=== PATIENT | male | born 1940 | race Caucasian/White ===

== ENCOUNTER 2021-12-09 13:26 | Inpatient (IN) | payer OTHER ==
[~2021-12-09] VITALS: Ht 162.6 cm; Wt 132.5 kg
[~2021-12-09 13:26] MED LIST changes: -ASPI81CH PO; -BRIMONIDINE TART5 M2 OP
[2021-12-09 14:15] LABS: BASOPHILS ABSOLUTE AUTO 0.05 K/mm3 (0.00-0.23); BASOPHILS PERCENT AUTO 1 % (0-2); EOSINOPHILS ABSOLUTE AUTO 0.18 K/mm3 (0.00-0.68); EOSINOPHILS PERCENT AUTO 3 % (0-6); Hematocrit 44.6 % (37.0-53.0); Hemoglobin 14.9 g/dL (13.5-17.5); IMMATURE GRAN ABSOLUTE AUTO 0.04 K/mm3 (0.00-0.10); IMMATURE GRAN PERCENT AUTO 1 % (0-1); LYMPHOCYTES ABSOLUTE AUTO 1.55 K/mm3 (0.84-5.20); LYMPHOCYTES PERCENT AUTO 21 % (21-46); MONOCYTES ABSOLUTE AUTO 0.91 K/mm3 (0.16-1.47); MONOCYTES PERCENT AUTO 13 % (4-13); Mean Corpuscular HGB 31.7 pg (26.0-34.0); Mean Corpuscular HGB Conc 33.4 g/dL (31.5-36.5); Mean Corpuscular Volume 95 fL (80-100); Mean Platelet Volume 11.6 fL (9.1-12.4); NEUTROPHILS ABSOLUTE AUTO 4.55 K/mm3 (1.96-9.15); NEUTROPHILS PERCENT AUTO 63 % (41-73); Platelet Count 142 K/mm3 (150-400); RDW Coefficient Variation 13.8 % (11.7-14.2); RDW Standard Deviation 47.2 fL (35.1-46.3); White Blood Cell Count 7.28 K/mm3 (4.00-11.30)
[2021-12-09 14:34] LABS: Bun/Creatinine Ratio 18.9 (12.0-20.0); Creatinine, Blood 1.22 mg/dL (0.60-1.20); Magnesium, Blood 2.4 mg/dL (1.6-2.4); Potassium, Blood 3.7 mmol/L (3.5-5.5); Thyroid Stimulating Hormone 1.68 uIU/mL (0.360-4.800)
[2021-12-09 15:23] LABS: International Normalized Ratio 1.24; Prothrombin Time Results 12.8 Sec (9.7-11.5)
[2021-12-09] MEDS ORDERED: BRIMONIDINE TART5 M2 OP (17:47)
[2021-12-09] MEDS ORDERED: ASPI81CH PO (17:47)
[2021-12-09 21:18] LABS: U Amphetamine Screen Not Detected; U Barbituate Screen Not Detected; U Benzodiazapine Screen Not Detected; U Buprenorphine Screen Not Detected; U Cannabinoids Screen Not Detected; U Cocaine Screen Not Detected; U Methadone Screen Not Detected; U Methamphetamine Screen Not Detected; U Opiates Screen Not Detected; U Oxycodone Screen Not Detected; U Phencyclidine Screen Not Detected; U Propoxyphene Screen Not Detected
[2021-12-10 04:39] LABS: Hemoglobin 13.5 g/dL (13.5-17.5); Mean Corpuscular HGB 31.5 pg (26.0-34.0); Mean Corpuscular HGB Conc 32.9 g/dL (31.5-36.5); Mean Corpuscular Volume 96 fL (80-100); Mean Platelet Volume 11.8 fL (9.1-12.4); Platelet Count 129 K/mm3 (150-400); RDW Coefficient Variation 13.8 % (11.7-14.2); RDW Standard Deviation 47.7 fL (35.1-46.3); Red Blood Cell Count 4.29 M/mm3 (4.30-5.90); White Blood Cell Count 7.03 K/mm3 (4.00-11.30)
[2021-12-10 04:54] LABS: Calcium, Blood 8.3 mg/dL (8.5-10.1); Creatinine, Blood 1.26 mg/dL (0.60-1.20); Potassium, Blood 3.1 mmol/L (3.5-5.5)
--- NOTE | 2021-12-10 05:06 | NUR ---
SHIFT SUMMARY PATIENT ALERT AND ORIENTED x4. USES CALL LIGHT APPROPRIATLEY AND IS ABLE TO MAKE NEEDS KNOWN TO STAFF. TELE READS AFIB. CARDIZEM GTT INFUSING, SEE FLOWSHEET FOR TITRATIONS. ALL OTHER VITALS SIGNS STABLE AND PATIENT ON 2L NC WITH O2 SAT >90%. NO COMPLAINTS OF CHEST PAIN SINCE ADMISSION. USING URINAL WITH ADEQUATE OUTPUT. PATIENT PREFERS TO SLEEP IN CHAIR vs HOSPITAL BED D/T COMFORT. CALL LIGHT IN REACH. NO OTHER SIGNIFICANT CHANGES, WILL REPORT TO DAY SHIFT RN.
--- NOTE | 2021-12-10 17:36 | NUR ---
PT RESTING COMFORTABLY T/O THE SHIFT, UP IN CHAIR AND SITTING AT SIDE OF BED. PT DENIES CHEST PAIN T/O THE SHIFT, CARDIOLOGY CONSULT THIS AFTERNOON, DR TORRES IN TO SEE PT AT BEDSIDE. ANGIOGRAM PLANNED FOR AM WITH PT NPO AFTER MIDNIGHT TONIGHT. CARDIZEM GTT AT 10MG/HR AND HEPARIN GTT PER PHARMACY CONTINUE. K 3.1 ON AM LABS, REPLACED WITH 20MEQ PO PER DR MENDIOLA. NO ACUTE EVENTS T/O THE SHIFT, PT ALERT, ORIENTED, CALM AND COOPERATIVE. VERBALIZES UNDERSTANDING OF PLAN OF CARE AT THIS TIME, HAS NO QUESTIONS OR CONCERNS. CALL LIGHT IN REACH, WILL CONTINUE TO MONITOR AND GIVE REPORT TO ONCOMING NOC SHIFT RN.
--- NOTE | 2021-12-10 19:20 | NUR ---
CARE ASSUMPTION NOTE SAMMI BRENNAN AND PATI GALEANO ASSUMED CARE AT 1900. BEDSIDE REPORT TAKEN FROM IRINEO GALEANO
[2021-12-11 02:36] LABS: BASOPHILS ABSOLUTE AUTO 0.07 K/mm3 (0.00-0.23); BASOPHILS PERCENT AUTO 1 % (0-2); EOSINOPHILS ABSOLUTE AUTO 0.22 K/mm3 (0.00-0.68); EOSINOPHILS PERCENT AUTO 3 % (0-6); Hematocrit 39.5 % (37.0-53.0); Hemoglobin 13.5 g/dL (13.5-17.5); IMMATURE GRAN ABSOLUTE AUTO 0.03 K/mm3 (0.00-0.10); IMMATURE GRAN PERCENT AUTO 0 % (0-1); LYMPHOCYTES ABSOLUTE AUTO 1.58 K/mm3 (0.84-5.20); LYMPHOCYTES PERCENT AUTO 18 % (21-46); MONOCYTES ABSOLUTE AUTO 0.91 K/mm3 (0.16-1.47); MONOCYTES PERCENT AUTO 11 % (4-13); Mean Corpuscular HGB 32.2 pg (26.0-34.0); Mean Corpuscular HGB Conc 34.2 g/dL (31.5-36.5); Mean Corpuscular Volume 94 fL (80-100); Mean Platelet Volume 10.9 fL (9.1-12.4); NEUTROPHILS ABSOLUTE AUTO 5.82 K/mm3 (1.96-9.15); NEUTROPHILS PERCENT AUTO 68 % (41-73); Platelet Count 127 K/mm3 (150-400); RDW Coefficient Variation 13.8 % (11.7-14.2); RDW Standard Deviation 46.6 fL (35.1-46.3); Red Blood Cell Count 4.19 M/mm3 (4.30-5.90); White Blood Cell Count 8.63 K/mm3 (4.00-11.30)
[2021-12-11 02:50] LABS: Albumin, Blood 3.3 g/dL (3.4-5.0); Anion Gap 5 mmol/L (6-16); Blood Urea Nitrogen 23 mg/dL (8-24); Bun/Creatinine Ratio 19.2 (12.0-20.0); CO2, Blood 32 mmol/L (21-32); Calcium, Blood 8.1 mg/dL (8.5-10.1); Chloride, Blood 103 mmol/L (98-108); Glomerular Filtration Rate 58 (60-); Glucose, Blood 110 mg/dL (70-99); Magnesium, Blood 2.2 mg/dL (1.6-2.4); Phosphorus, Blood 3.6 mg/dL (2.5-4.9); Potassium, Blood 3.3 mmol/L (3.5-5.5); Sodium, Blood 140 mmol/L (136-145)
--- NOTE | 2021-12-11 04:40 | NUR ---
SHIFT SUMMARY PATIENT A&O X4. CONTINENT OF B/B AND ABLE TO USE CALL BUTTON APPROPRIATELY FOR ASSISTANCE; ANSWERS QUESTIONS APPROPRIATELY. DENIES PAIN. AFEBRILE. ON 2L OF O2 VIA NC, SATS 92-95% DURING SHIFT. AFIB ON MONITOR WITH HR 90-130S DEPENDING ON PATIENTS ACTIVITY. SBP 120-130S. PATIENT HAS BEEN NPO SINCE MIDNIGHT FOR ANGIO SCHEDULED FOR THIS AM. HEPARIN INFUSING AT 12 UNITS/KG/HR; CARDIZEM INFUSING AT 5 MG/HR. PATIENT HAS SLEPT IN RECLINER THROUGHOUT THE NIGHT DUE TO DISLIKING BED. CALL BUTTON WITHIN REACH. WILL CONTINUE TO MONITOR.
[2021-12-11 14:36] LABS: Influenza A, PCR NEGATIVE (NEGATIVE); Influenza B, PCR NEGATIVE (NEGATIVE); Resp Syncytial Virus, PCR NEGATIVE (NEGATIVE); SARS-Cov-2 (COVID-19) PCR, MMC NEGATIVE (NEGATIVE)
--- NOTE | 2021-12-11 15:08 | NUR ---
Dr. Garcia here, talking with pt and son. Plan is for [facility] transfer to [place] for intervention/surgery.
--- NOTE | 2021-12-11 15:12 | NUR ---
SHIFT SUMMARY Pt is a/o x 4. He has no c/o pain. He was NPO this morning for an angio. He went to the heart center and returned with a right radial access site but no intervention. He needs a higher level of care for his cardiac interventions and Dr Garcia has been communicating with a doctor at [facility] for a [facility] transfer and they are waiting on a bed. The pt has been made aware of this plan and his son is at the bedside. Heparin drip is on hold for now until 6 hours post angio per Dr Garcia. The cardiazem continues as ordered and he remains in a-fib in the 100's-120's. He needs assistance with the urinal to void. He calls appropriately and has his call light in reach. Report was given to the receiving nurse.
--- NOTE | 2021-12-11 15:19 | NUR ---
3 CC AIR REMOVED FROM THE TR BAND. NO BLEEDING, NO BRUISING, NO HEMATOMA, NO SWELLING. PT DENIES PAIN/ NUMBNESS. SPO2 92% ON THE INDEX FINGER OF THE RIGHT HAND, CAP REFILL LESS THAN 3 SECONDS, AND GOOD PALPABLE DISTAL PULSE.
--- NOTE | 2021-12-11 15:28 | NUR ---
Pt's watch, cell phone, [place] and wallet were given to Brock, the pt's son at this time per the pt's request.
--- NOTE | 2021-12-11 16:24 | NUR ---
Pt's son called as he was not here, and the pt is going to leave for [facility] at 1645 by ambulance. Pt has his cell phone with him now. Coreg given per scheduled orders, and cardizem gtt is running at 10cc/hour (10 mg). Vital signs stable, blood pressure at most recent check was 112/73 and heart rate is 101. TR band fully deflated; pt has no hematoma, no bleeding, no swelling and no bruising noted. He denies all pain/discomfort at this time. Pleasantly conversant. Signed consent signed by the patient at this time. TR band is left in place with instructions written on it to remove at 1715, one hour post deflation. Will call the accepting facility to give telephone report to the receiving RN.
--- NOTE | 2021-12-11 16:49 | NUR ---
EMT and senior linux unix engineer arrived and pt was taken via [facility] at this time to [facility]. Cardizemelinda gtt is infusing at 10cc/hour. Pt denies chest pain/dyspnea or other discomfort at this time. TR band site remains unchanged from prior assessment. TR band is in place, and should be removed at 1715, one hour post complete deflation. Telephone report called to Gabriel at [phone].
== END 2021-12-11 16:45 | disposition short-term general hospital (02) | DRG 280 ==
LOC: ER 13:26 → PCU 18:12
PROVIDERS: Internal Medicine; Internal Medicine Cardiovascular Disease; Student in an Organized Health Care Education/Training Program; ADMIT Internal Medicine
PROC: 4A023N7 Measurement of Cardiac Sampling and Pressure, Left Heart, Percutaneous Approach (ICD-10-PCS; principal; 2021-12-11)
PROC: B2111ZZ Fluoroscopy of Multiple Coronary Arteries using Low Osmolar Contrast (ICD-10-PCS; 2021-12-11)
DX: I50.43 Acute on chronic combined systolic (congestive) and diastolic (congestive) heart failure (principal); J96.01 Acute respiratory failure with hypoxia; I21.4 Non-ST elevation (NSTEMI) myocardial infarction; Z68.42 Body mass index [BMI] 45.0-49.9, adult; Z20.822 Contact with and (suspected) exposure to COVID-19; I51.3 Intracardiac thrombosis, not elsewhere classified; I48.91 Unspecified atrial fibrillation; E66.01 Morbid (severe) obesity due to excess calories; Z60.2 Problems related to living alone; I25.10 Atherosclerotic heart disease of native coronary artery without angina pectoris; Z88.5 Allergy status to narcotic agent; Z98.890 Other specified postprocedural states; Z79.82 Long term (current) use of aspirin; Z79.899 Other long term (current) drug therapy; Z87.891 Personal history of nicotine dependence
CPT/HCPCS: 0241U; 36415; 71045; 71260; 76937; 80048; 80069; 83735; 83880; 84100; 84443; 84484; 85025; 85027; 85379; 85520; 85610; 85730; 93005; 93010; 93458; 96365; 96372; 96375; 96376; 99152; 99153; 99285-25; A9270; C1769; C1887; C1894; C8929; J1644; J1650; J1940; J2250; J3010; J7030; J7040; Q9957; Q9967

== ENCOUNTER → 2021-12-09 | Outpatient (CLI) | payer OTHER ==
[~2021-12-09] MED LIST: ASPI81CH PO; BRIMONIDINE TART5 M2 OP; HYDACE5 PO
[2021-12-09 12:45] LABS: BASOPHILS ABSOLUTE AUTO 0.06 K/mm3 (0.00-0.23); BASOPHILS PERCENT AUTO 1 % (0-2); EOSINOPHILS ABSOLUTE AUTO 0.16 K/mm3 (0.00-0.68); EOSINOPHILS PERCENT AUTO 2 % (0-6); Hematocrit 43.4 % (37.0-53.0); Hemoglobin 15.1 g/dL (13.5-17.5); IMMATURE GRAN ABSOLUTE AUTO 0.04 K/mm3 (0.00-0.10); IMMATURE GRAN PERCENT AUTO 1 % (0-1); LYMPHOCYTES ABSOLUTE AUTO 1.33 K/mm3 (0.84-5.20); LYMPHOCYTES PERCENT AUTO 19 % (21-46); MONOCYTES ABSOLUTE AUTO 0.77 K/mm3 (0.16-1.47); MONOCYTES PERCENT AUTO 11 % (4-13); Mean Corpuscular HGB 32.8 pg (26.0-34.0); Mean Corpuscular HGB Conc 34.8 g/dL (31.5-36.5); Mean Corpuscular Volume 94 fL (80-100); Mean Platelet Volume 11.2 fL (9.1-12.4); NEUTROPHILS ABSOLUTE AUTO 4.62 K/mm3 (1.96-9.15); NEUTROPHILS PERCENT AUTO 66 % (41-73); Platelet Count 145 K/mm3 (150-400); RDW Coefficient Variation 13.9 % (11.7-14.2); RDW Standard Deviation 46.5 fL (35.1-46.3); White Blood Cell Count 6.98 K/mm3 (4.00-11.30)
[2021-12-09 13:20] LABS: Alanine Aminotransfer (ALT/SGP 41 U/L (12-78); Albumin, Blood 3.7 g/dL (3.4-5.0); Albumin/Globulin Ratio 1.1 (0.8-1.8); Alk Phos 60 U/L (50-136); Anion Gap 4 mmol/L (6-16); Aspartate Aminotrans (AST/SGOT 20 U/L (12-37); Bilirubin, Total 1.2 mg/dL (0.1-1.0); Blood Urea Nitrogen 9 mg/dL (8-24); Bun/Creatinine Ratio 10.2 (12.0-20.0); CO2, Blood 30 mmol/L (21-32); Calcium, Blood 8.9 mg/dL (8.5-10.1); Chloride, Blood 108 mmol/L (98-108); Creatinine, Blood 0.88 mg/dL (0.60-1.20); Globulin, Blood 3.4 g/dL (2.2-4.0); Glomerular Filtration Rate >60 (60-); Glucose, Blood 100 mg/dL (70-99); Potassium, Blood 4.4 mmol/L (3.5-5.5); Sodium, Blood 142 mmol/L (136-145); Total Protein, Blood 7.1 g/dL (6.4-8.2)
== END ==
LOC: LAB SHORT 12:39
PROVIDERS: Physician Assistant
DX: R07.9 Chest pain, unspecified (principal); R06.02 Shortness of breath
CPT/HCPCS: 80053; 83880; 84484; 85025

== ENCOUNTER 2022-03-11 03:24 | Day surgery (SDC) | payer OTHER ==
[~2022-03-11 03:24] MED LIST changes: +ASPI81CH PO; +ATOR40TA PO; +BRIMONIDINE TART5 M2 OP; +DILTIAZEM 24HR180 M3 PO; +ELIQUIS5 M3 PO; +METO100ER PO; +Potassium Chlo20 ME1 PO; +SOAANZ20 M1 PO
== END 2022-03-11 08:29 | disposition home or self-care (01) ==
LOC: ATC 03:24
DX: I21.4 Non-ST elevation (NSTEMI) myocardial infarction (principal); I25.10 Atherosclerotic heart disease of native coronary artery without angina pectoris; Z95.1 Presence of aortocoronary bypass graft; I50.23 Acute on chronic systolic (congestive) heart failure; N18.30 Chronic kidney disease, stage 3 unspecified; E66.01 Morbid (severe) obesity due to excess calories; Z87.891 Personal history of nicotine dependence; Z68.42 Body mass index [BMI] 45.0-49.9, adult
CPT/HCPCS: 96372; J1650

== ENCOUNTER 2022-03-28 14:07 | Emergency (ER) | payer OTHER ==
[~2022-03-28] VITALS: Ht 162.6 cm; Wt 117.9 kg
[2022-03-28 15:23] LABS: BASOPHILS ABSOLUTE AUTO 0.05 K/mm3 (0.00-0.23); BASOPHILS PERCENT AUTO 1 % (0-2); EOSINOPHILS ABSOLUTE AUTO 0.28 K/mm3 (0.00-0.68); EOSINOPHILS PERCENT AUTO 4 % (0-6); Hematocrit 40.8 % (37.0-53.0); Hemoglobin 14.3 g/dL (13.5-17.5); IMMATURE GRAN ABSOLUTE AUTO 0.02 K/mm3 (0.00-0.10); IMMATURE GRAN PERCENT AUTO 0 % (0-1); LYMPHOCYTES ABSOLUTE AUTO 1.58 K/mm3 (0.84-5.20); LYMPHOCYTES PERCENT AUTO 23 % (21-46); MONOCYTES ABSOLUTE AUTO 0.93 K/mm3 (0.16-1.47); MONOCYTES PERCENT AUTO 14 % (4-13); Mean Corpuscular HGB 32.4 pg (26.0-34.0); Mean Corpuscular Volume 93 fL (80-100); Mean Platelet Volume 11.1 fL (9.1-12.4); NEUTROPHILS ABSOLUTE AUTO 3.95 K/mm3 (1.96-9.15); NEUTROPHILS PERCENT AUTO 58 % (41-73); Platelet Count 151 K/mm3 (150-400); RDW Coefficient Variation 13.3 % (11.7-14.2); RDW Standard Deviation 44.7 fL (35.1-46.3); Red Blood Cell Count 4.41 M/mm3 (4.30-5.90); White Blood Cell Count 6.81 K/mm3 (4.00-11.30)
[2022-03-28 15:43] LABS: Albumin, Blood 3.6 g/dL (3.4-5.0); Albumin/Globulin Ratio 0.9 (0.8-1.8); Bilirubin, Total 1.9 mg/dL (0.1-1.0); Bun/Creatinine Ratio 20.2 (12.0-20.0); Creatinine, Blood 1.24 mg/dL (0.60-1.20); Globulin, Blood 3.8 g/dL (2.2-4.0); Potassium, Blood 3.9 mmol/L (3.5-5.5); Total Protein, Blood 7.4 g/dL (6.4-8.2)
[2022-03-28] MEDS ORDERED: ASPI325 PO (16:33)
[2022-03-28] MEDS ORDERED: LOW DOSE ASPIRI81 M1 PO (16:34)
[2022-03-28] MEDS ORDERED: TORSE20 PO (20:30)
[2022-03-28] MEDS ORDERED: Prinivil10 MG PO (20:30)
[2022-03-28] MEDS ORDERED: DIGOX250 MCG PO (20:30)
== END 2022-03-28 20:34 | disposition home or self-care (01) ==
LOC: ER 14:07
PROVIDERS: Physician Assistant
DX: I48.91 Unspecified atrial fibrillation (principal); I50.9 Heart failure, unspecified; Z79.899 Other long term (current) drug therapy; Z79.01 Long term (current) use of anticoagulants; Z87.891 Personal history of nicotine dependence
CPT/HCPCS: 80053; 83735; 85025; 93005; 93010; A9270; J1160; J1940

== ENCOUNTER 2022-04-18 15:27 | Inpatient (IN) | payer OTHER ==
[~2022-04-18] VITALS: Ht 170.2 cm; Wt 111.8 kg
[~2022-04-18 15:27] MED LIST changes: +ASPI325 PO; +DIGOX250 MCG PO; +LOW DOSE ASPIRI81 M1 PO; -METO100ER PO; +METO50ER PO; +Prinivil10 MG PO; -SOAANZ20 M1 PO; +SPIRONOLACTONE25 MG PO; +TORSE20 PO
[2022-04-18 16:05] LABS: BASOPHILS ABSOLUTE AUTO 0.03 K/mm3 (0.00-0.23); BASOPHILS PERCENT AUTO 0 % (0-2); EOSINOPHILS PERCENT AUTO 1 % (0-6); Hematocrit 42.1 % (37.0-53.0); Hemoglobin 14.2 g/dL (13.5-17.5); IMMATURE GRAN ABSOLUTE AUTO 0.04 K/mm3 (0.00-0.10); IMMATURE GRAN PERCENT AUTO 0 % (0-1); LYMPHOCYTES ABSOLUTE AUTO 0.72 K/mm3 (0.84-5.20); LYMPHOCYTES PERCENT AUTO 7 % (21-46); MONOCYTES ABSOLUTE AUTO 1.17 K/mm3 (0.16-1.47); MONOCYTES PERCENT AUTO 11 % (4-13); Mean Corpuscular HGB 32.1 pg (26.0-34.0); Mean Corpuscular HGB Conc 33.7 g/dL (31.5-36.5); Mean Corpuscular Volume 95 fL (80-100); Mean Platelet Volume 12.4 fL (9.1-12.4); NEUTROPHILS ABSOLUTE AUTO 8.64 K/mm3 (1.96-9.15); NEUTROPHILS PERCENT AUTO 81 % (41-73); Platelet Count 101 K/mm3 (150-400); RDW Coefficient Variation 14.1 % (11.7-14.2); RDW Standard Deviation 49.3 fL (35.1-46.3); Red Blood Cell Count 4.43 M/mm3 (4.30-5.90)
[2022-04-18 16:30] LABS: Albumin, Blood 3.2 g/dL (3.4-5.0); Albumin/Globulin Ratio 0.8 (0.8-1.8); Calcium, Blood 9.3 mg/dL (8.5-10.1); Creatinine, Blood 17.6 mg/dL (0.60-1.20); Globulin, Blood 3.9 g/dL (2.2-4.0); Total Protein, Blood 7.1 g/dL (6.4-8.2)
[2022-04-18 16:35] LABS: Base Excess Venous -17.1 mmol/L; Bicarbonate Venous 12.5 mmol/L (24.0-30.0); PCO2 Venous 28.2 mmHg (38-42); PO2 Venous 39.4 mmHg (38-42)
[2022-04-18 16:57] LABS: International Normalized Ratio 1.31; Prothrombin Time Results 13.5 Sec (9.7-11.5)
[2022-04-18 17:07] LABS: Influenza A, PCR NEGATIVE (NEGATIVE); Influenza B, PCR NEGATIVE (NEGATIVE); Resp Syncytial Virus, PCR NEGATIVE (NEGATIVE); SARS-Cov-2 (COVID-19) PCR, MMC NEGATIVE (NEGATIVE)
[2022-04-18 17:11] LABS: Magnesium, Blood 2.3 mg/dL (1.6-2.4); Phosphorus, Blood 7.5 mg/dL (2.5-4.9)
[2022-04-18 18:39] LABS: Creatine Kinase MB 12.7 ng/mL (0.0-3.6); Creatine Kinase MB Index 1.9 (0.0-4.0)
--- NOTE | 2022-04-18 20:10 | NUR ---
ARRIVAL TO ICU PT ARRIVED TO ICU 7 IN ED JEAN CLAUDEZAYRA AT 2002. TRANSFERED TO ICU BED. PT IS A/O TO SELF ONLY. FOLLOWING DIRECTIONS. RAMBLING/NONSENSICAL CONVERSATION. MOVING ALL EXTREMITIES. NY IN PLACE, LEAKING NOTED. DRAINING DARK TEA COLORED URINE. RA SATS STABLE. VSS. SEE ADMIT ASSESSMENT FOR FULL ASSESSMENT.
[2022-04-18 20:22] LABS: Albumin, Blood 3.2 g/dL (3.4-5.0); Anion Gap 18 mmol/L (6-16); Blood Urea Nitrogen 208 mg/dL (8-24); CO2, Blood 11 mmol/L (21-32); Calcium, Blood 9.3 mg/dL (8.5-10.1); Chloride, Blood 117 mmol/L (98-108); Glomerular Filtration Rate 3 (60-); Glucose, Blood 114 mg/dL (70-99); Phosphorus, Blood 6.6 mg/dL (2.5-4.9); Potassium, Blood 4.7 mmol/L (3.5-5.5); Sodium, Blood 146 mmol/L (136-145)
[2022-04-18 20:53] LABS: Adenovirus F 40/41 Not Detected (NOT DETECT); Astrovirus Not Detected (NOT DETECT); Campylobacter Sp Not Detected (NOT DETECT); Cryptosporidium Not Detected (NOT DETECT); Cyclospora Cayetanensis Not Detected (NOT DETECT); E. Coli O157 Not Detected (NOT DETECT); Entamoeba Histolytica Not Detected (NOT DETECT); Enteroaggregative E. coli-EAEC Not Detected (NOT DETECT); Enteropathogenic E. coli-EPEC Not Detected (NOT DETECT); Enterotoxigenic E. coli-ETEC Not Detected (NOT DETECT); Giardia Lamblia Not Detected (NOT DETECT); Norovirus GI/GII Not Detected (NOT DETECT); Plesiomonas Shigelloides Not Detected (NOT DETECT); Rotavirus A Not Detected (NOT DETECT); Salmonella Sp Not Detected (NOT DETECT); Sapovirus Not Detected (NOT DETECT); Shiga Toxin-prod E. coli-STEC Not Detected (NOT DETECT); Shigella/Enteroin E. coli-EIEC Not Detected (NOT DETECT); Vibrio Cholerae Not Detected (NOT DETECT); Vibrio Sp Not Detected (NOT DETECT); Yersinia Enterocolitica Not Detected (NOT DETECT)
--- NOTE | 2022-04-18 21:45 | NUR ---
CALL TO MD/CANCEL CT CALL PLACED TO DR AVILES REGARDING CT OF HEAD/SPINE NOT COMPLETED IN ED. INFORMED MD OF UNEQUAL PUPIL SIZES, WHICH PT STATES IS NORMAL. ALSO EXPRESSED CONCERN OF PT NOT REMAINING STILL FOR CT. PLAN TO D/C CT SCANS AT THIS TIME AND WILL REEVALUATE IF NEEDED.
[2022-04-19 03:18] LABS: BASOPHILS ABSOLUTE AUTO 0.04 K/mm3 (0.00-0.23); BASOPHILS PERCENT AUTO 1 % (0-2); EOSINOPHILS PERCENT AUTO 2 % (0-6); Hematocrit 36.9 % (37.0-53.0); Hemoglobin 12.9 g/dL (13.5-17.5); IMMATURE GRAN ABSOLUTE AUTO 0.02 K/mm3 (0.00-0.10); IMMATURE GRAN PERCENT AUTO 0 % (0-1); LYMPHOCYTES ABSOLUTE AUTO 0.68 K/mm3 (0.84-5.20); LYMPHOCYTES PERCENT AUTO 8 % (21-46); MONOCYTES ABSOLUTE AUTO 0.91 K/mm3 (0.16-1.47); MONOCYTES PERCENT AUTO 11 % (4-13); Mean Corpuscular HGB 32.1 pg (26.0-34.0); Mean Corpuscular Volume 92 fL (80-100); Mean Platelet Volume 11.7 fL (9.1-12.4); NEUTROPHILS ABSOLUTE AUTO 6.36 K/mm3 (1.96-9.15); NEUTROPHILS PERCENT AUTO 78 % (41-73); Platelet Count 80 K/mm3 (150-400); RDW Coefficient Variation 13.9 % (11.7-14.2); RDW Standard Deviation 47.1 fL (35.1-46.3); Red Blood Cell Count 4.02 M/mm3 (4.30-5.90); White Blood Cell Count 8.21 K/mm3 (4.00-11.30)
[2022-04-19 03:45] LABS: Albumin, Blood 2.8 g/dL (3.4-5.0); Anion Gap 17 mmol/L (6-16); Blood Urea Nitrogen 219 mg/dL (8-24); Bun/Creatinine Ratio 14.6 (12.0-20.0); CO2, Blood 16 mmol/L (21-32); Calcium, Blood 8.3 mg/dL (8.5-10.1); Chloride, Blood 115 mmol/L (98-108); Glomerular Filtration Rate 3 (60-); Glucose, Blood 128 mg/dL (70-99); Phosphorus, Blood 6.3 mg/dL (2.5-4.9); Potassium, Blood 4.2 mmol/L (3.5-5.5); Sodium, Blood 148 mmol/L (136-145); Vancomycin, Random 12.7 ug/mL
--- NOTE | 2022-04-19 06:07 | NUR ---
SHIFT SUMMARY PT A/O TO SELF ONLY. BICARB GTT 100ML/HR. D5W GTT 50ML/HR. FOLLOWING DIRECTIONS. MOVING ALL EXTREMITIES SPONTANEOUSLY AND TO COMMAND. ON RA W/ SATS GREATER THAN 90. SR IN THE 80s-90s. VSS. NY PATENT AND DRAINING TO GRAVITY. LIGHT TEA COLORED URINE. PT C/O PAIN AND DIFFICULTY VOIDING. BLADDER SCAN NEG FOR RETENTION AND NO PAIN WITH PALPATION. PT REQUIRES FREQUENT REMINDERS THAT NY IS PRESENT. AM LABS CALLED TO DR TRIMBLE.
--- NOTE | 2022-04-19 08:32 | NUR ---
ASSUMED CARE PT IS AWAKE AND RESTLESS IN BED. PT HAD TAKEN ALL OF HIS COVERS OFF AND COMPLAINED OF BEING HOT, PROVIDED HIM WITH A FAN, BUT THEN PT SAID HE WAS FREEZING AND STARTED SHIVERING SOON FAN STARTED SO FAN TURNED OFF. WITH COVERS OFF, PT'S GROIN EXPOSED AND THE TIP OF HIS PENIS APPEARED RED AND SWOLLEN. PT SAYS HE IS NOT CIRCUMCISED AND FORESKIN WAS PUSHED ALL THE WAY BACK SO ATTEMPTED TO PULL IT FORWARD AND ABLE TO GET IT ABOUT USP BACK OVER THE HEAD OF THE PENIS. PT THEN CLEANED UP HE HAD STOOLED AND BY THE TIME THAT WAS DONE SWELLING APPEARED TO HAVE GONE DOWN ALREADY AND FORESKIN WAS COVERING MORE OF THE HEAD. CONTINUING TO MONITOR THAT CLOSELY. WHEN ASKED ORIENTATION QUESTIONS PT SAYS HE IS IN [facility]. HE APPEARS TO BE JOKING, BUT THEN WON'T ANSWER SERIOUSLY. HE ALSO THOUGHT THE MONTH WAS FEBRUARY AND SAID HE HAD NO IDEA ABOUT THE YEAR. HE IS ABLE TO FOLLOW DIRECTIONS AND WAS ABLE TO DRINK WATER WITHOUT ANY SIGNS OF ASPIRATION AND THEN TAKE HIS PILLS WHOLE WITHOUT PROBLEM. HE REFUSED BREAKFAST.
--- NOTE | 2022-04-19 11:49 | NUR ---
REASSESSMENT PT'S MENTATION IS SLOWLY IMPROVING. HE IS ABLE TO SAY THAT HE IS IN [place] NOW AND IS RETAINING THAT HE IS IN THE HOSPITAL BECAUSE OF HIS KIDNEYS. HE CAN'T RECALL THE NAME OF HIS SURGEON UP IN [place] OR OTHER MORE SPECIFIC HISTORY DETAILS. HIS LUNGS REMAIN CLEAR, RA WITH SPO2 99%. BP HAS BEENS TABLE THROUGH THE MORNING, BUT SINCE PT GOT BACK IN BED AFTER HIS SHOWER SBP HAS BEEN 80S WITH MAP IN THE UPPER 50S. MONITORING CLOSE AND WILL CALL MD IF IT PERSISTS. PT IS STILL SHIVERING OCCASIONALLY DESPITE WARM BLANKETS AND THAT COULD BE INTERFERING WITH BP READING. PT IS DRINKING WATER AND CURRENTLY SITTING UP FEEDING HIMSELF LUNCH. NY WITH CL YELLOW URINE. DR. TRIMBLE CAME BY AND SPOKE WITH PT THIS AM. STILL HAVING LIQUID STOOLS. WILL COLLECT SAMPLE IF ABLE, BUT THEY ARE JUST SOAKING INTO THE LINENS AND PADDING UNDER PT. SPOKE WITH DR. CATAALN AND PT IN CONTACT ISO A PRECAUTION FOR C.DIFF UNTIL WE CAN GET A SAMPLE. WHEN GOING TO THE SHOWER PT WAS ABLE TO STAND AND BEAR WEIGHT WITH 2 PERSON ASSIST. HE NEEDED ASSISTANCE GETTING TO THE EOB WELL BUT WAS STABLE WHILE SITTING AT THE EOB AND IN THE CHAIR. CALLED PT'S SON LATOSHA AND PROVIDED UPDATE.
--- NOTE | 2022-04-19 15:32 | NUR ---
BP PT'S MAP HAS CONTINUED TO RUN 55-60 WITH SBP 80-90S. MENTATION CONTINUES TO BE IMPROVED, STILL MAKING URINE. SPOKE WITH DR. CATALAN AND RECEIVED ORDER FOR 1L LR BOLUS. INFUSING NOW.
--- NOTE | 2022-04-19 17:12 | NUR ---
SHIFT SUMMARY PT'S MENTATION HAS CONTINUED TO IMPROVE THROUGHOUT THE DAY. HE IS ALERT, ORIENTED TO PERSON AND PLACE. HIS LUNGS ARE CLEAR, BUT VERY DIM IN THE BASES. 100% ON RA. SR. PT HAS BEEN HYPOTENSIVE THIS AFTERNOON, BUT BP IMPROVED AFTER 1L BOLUS WITH MAP CURRENTLY 78. PT HAD 1 LIQUID BM THIS AM THEN A FEW SMEARS THAT ABSORBED INTO THE PADS UDNER HIM SO NO SAMPLE ABLE TO BE SENT. PT HAS HAD A POOR APPETITE, BUT IS EATING DINNER CURRENTLY. NY WITHCL YELLOW URINE, GOOD OUTPUT, SEE I/O. CONTINUE TO MONITOR.
[2022-04-20 03:48] LABS: BASOPHILS ABSOLUTE AUTO 0.03 K/mm3 (0.00-0.23); BASOPHILS PERCENT AUTO 1 % (0-2); EOSINOPHILS ABSOLUTE AUTO 0.38 K/mm3 (0.00-0.68); EOSINOPHILS PERCENT AUTO 7 % (0-6); Hematocrit 35.8 % (37.0-53.0); Hemoglobin 12.5 g/dL (13.5-17.5); IMMATURE GRAN ABSOLUTE AUTO 0.02 K/mm3 (0.00-0.10); IMMATURE GRAN PERCENT AUTO 0 % (0-1); LYMPHOCYTES ABSOLUTE AUTO 0.64 K/mm3 (0.84-5.20); LYMPHOCYTES PERCENT AUTO 12 % (21-46); MONOCYTES ABSOLUTE AUTO 0.74 K/mm3 (0.16-1.47); MONOCYTES PERCENT AUTO 14 % (4-13); Mean Corpuscular HGB 31.9 pg (26.0-34.0); Mean Corpuscular HGB Conc 34.9 g/dL (31.5-36.5); Mean Corpuscular Volume 91 fL (80-100); Mean Platelet Volume 12.1 fL (9.1-12.4); NEUTROPHILS ABSOLUTE AUTO 3.38 K/mm3 (1.96-9.15); NEUTROPHILS PERCENT AUTO 65 % (41-73); Platelet Count 81 K/mm3 (150-400); RDW Coefficient Variation 13.6 % (11.7-14.2); RDW Standard Deviation 45.8 fL (35.1-46.3); Red Blood Cell Count 3.92 M/mm3 (4.30-5.90); White Blood Cell Count 5.19 K/mm3 (4.00-11.30)
[2022-04-20 04:07] LABS: Albumin, Blood 2.5 g/dL (3.4-5.0); Anion Gap 10 mmol/L (6-16); Blood Urea Nitrogen 147 mg/dL (8-24); Bun/Creatinine Ratio 23.9 (12.0-20.0); CO2, Blood 26 mmol/L (21-32); Calcium, Blood 7.7 mg/dL (8.5-10.1); Chloride, Blood 115 mmol/L (98-108); Creatinine, Blood 6.15 mg/dL (0.60-1.20); Glomerular Filtration Rate 9 (60-); Glucose, Blood 140 mg/dL (70-99); Magnesium, Blood 1.7 mg/dL (1.6-2.4); Phosphorus, Blood 4.1 mg/dL (2.5-4.9); Potassium, Blood 3.5 mmol/L (3.5-5.5); Sodium, Blood 151 mmol/L (136-145); Vancomycin, Random 11.9 ug/mL
--- NOTE | 2022-04-20 06:03 | NUR ---
NEURO: MENTATION CLEARING - SPEECH MORE CLEARED FROM RAMBLING & SLIGHT SLURR. DENIES PAIN CV: NORMOTENSIVE SR AFEBRILE LUNG: DIMINISHED NON PROUDUCTIVE COUGH GI: INCONTINENT TOTAL BED CHANGE : NY CLEAR YELLOW SKIN: EXCORIATED. GENTLE BED BATH AND MEDICATED POWDER APPLIED
--- NOTE | 2022-04-20 09:35 | NUR ---
NAUSEA PT HAS BEEN VERY NAUSEOUS THIS MORNING, RETCHING FREQUENTLY. IT SEEMS TO START AFTER A COUGHING FIT BUT PT DOES SAY HE FEELS NAUSEOUS WELL. PT ALREADY RECEIVED ZOFRAN THIS MORNING. SPOKE WITH DR. CATALAN AND SHE PLACED ORDER FOR REGLAN, GIVEN AND PT SEEMS MORE COMFORTABLE SINCE WITH LESS RETCHING. DR. CATALAN ROUNDED ON PT AND GAVE OK FOR PT TO BE PCU STATUS. WHILE PT HAS BEEN SLEEPING HIS SPO2 DROPPED TO 85%, PALCED ON 2L/NC AND NOW 94%.
--- NOTE | 2022-04-20 13:24 | NUR ---
REASSESSMENT PT HAS BEEN SLEEPING FOR MOST OF THE MORNING. HE WAKES UP TO VOICE, BUT CONTINUES TO BE DISORIENTED TO PLACE. HIS NAUSEA AND DRY HEAVING STILL CONTINUES WHEN AWAKE, BUT PT QUICKLY FALLS BACK ASLEEP IF LEFT ALONE. HIS LUNGS STILL HAVE CRACKLES IN THE BASES. PLACED ON 2L/NC THIS MORNIGN FOR SPO2 IN THE 80S WHILE SLEEPING AND CURRENTLY 94%. SR/SB WITH FIRST DEGREE AVB. RATE MOSTLY IN THE 60S, BUT WILL QUICKLY DIP TO THE UPPER 40S OCCASIONALLY AND THEN REBOUND BACK TO THE 560S. MAP IN THE 70S AND 80S. PT HAS HAD NO APPETITE TODAY. HE TOOK A FEW SIPS OF NEPRO WITH HIS MEDS, BUT OTHERWISE HASN'T WANTED TO EAT OR DRINK ANYTHING. ABD SLIGHTLY DISTENDED, BUT STILL SOFT AND PT DENIES PAIN. BT ACTIVE. HAD ABD CT THIS AM. D5W INFUSING AT 50ML/HR PER DR. CATALAN. UPDATED WITH NOON LABS AND FLUID RATE.
--- NOTE | 2022-04-20 16:55 | NUR ---
SHIFT SUMMARY PT HAS CONTINUED TO SLEEP WHEN LEFT ALONE THROUGHOUT THE DAY. HE WAKES TO VOICE AND THEN IS ORIENTED TO SELF AND FOLLOWS DIRECTIONS. HE HAS BEEN VERY PLEASANT WHEN AWAKE, BUT HE STILL CAN'T REMEMBER WHERE HE IS TODAY OR THE YEAR. HIS LUNGS HAVE SOME CRACKLES IN THE BASES, STILL ON 2L/NC. SB WITH RATE IN THE 50S WHILE SLEEPING, BP STABLE. NO BM SO FAR TODAY, BT ACTIVE. NY DRAINING CL YELLOW URINE. PT'S SON UPDATED VIA TC TODAY. CONTINUING TO MONITOR.
--- NOTE | 2022-04-20 18:05 | NUR ---
PT TRANSFERRED FROM ICU. THIS RN AND OLEG RN ASSUMED CARE OF PT. PT A&O ONLY TO SELF. PT RESPONSES ARE SLOWED. PT ON 2L VIA NC. VSS, SEE CHART. NY IN PLACE AND DRAINING TO GRAVITY. SMALL AMOUNT OF BLOOD AROUND CATHETER NOTED. PT SETTLED IN BED, CALL LIGHT WITHIN REACH AND BED IN LOWEST POSITION
--- NOTE | 2022-04-20 18:59 | NUR ---
TRANSFER PT TRANSFERRED TO PCU 12. REPORT GIVEN TO FROYLAN ANDRADE. ALL BELONGINGS TRANSFERRED INCLUDING PT'S WALLET AND 2 CELL PHONES. PT'S SON LATOSHA NOTIFIED BY TELEPHONE OF PT'S NEW ROOM NUMBER AND PROVIDED WITH PHONE NUMBER FOR PCU.
[2022-04-21 03:16] LABS: BASOPHILS ABSOLUTE AUTO 0.03 K/mm3 (0.00-0.23); BASOPHILS PERCENT AUTO 1 % (0-2); EOSINOPHILS ABSOLUTE AUTO 0.38 K/mm3 (0.00-0.68); EOSINOPHILS PERCENT AUTO 8 % (0-6); Hematocrit 38.4 % (37.0-53.0); Hemoglobin 12.7 g/dL (13.5-17.5); IMMATURE GRAN ABSOLUTE AUTO 0.02 K/mm3 (0.00-0.10); IMMATURE GRAN PERCENT AUTO 0 % (0-1); LYMPHOCYTES ABSOLUTE AUTO 0.62 K/mm3 (0.84-5.20); LYMPHOCYTES PERCENT AUTO 13 % (21-46); MONOCYTES ABSOLUTE AUTO 0.83 K/mm3 (0.16-1.47); MONOCYTES PERCENT AUTO 17 % (4-13); Mean Corpuscular HGB 31.5 pg (26.0-34.0); Mean Corpuscular HGB Conc 33.1 g/dL (31.5-36.5); Mean Corpuscular Volume 95 fL (80-100); Mean Platelet Volume 11.5 fL (9.1-12.4); NEUTROPHILS ABSOLUTE AUTO 2.99 K/mm3 (1.96-9.15); NEUTROPHILS PERCENT AUTO 62 % (41-73); Platelet Count 92 K/mm3 (150-400); RDW Coefficient Variation 13.4 % (11.7-14.2); RDW Standard Deviation 47.3 fL (35.1-46.3); Red Blood Cell Count 4.03 M/mm3 (4.30-5.90); White Blood Cell Count 4.87 K/mm3 (4.00-11.30)
[2022-04-21 03:35] LABS: Albumin, Blood 2.5 g/dL (3.4-5.0); Anion Gap 4 mmol/L (6-16); Blood Urea Nitrogen 93 mg/dL (8-24); Bun/Creatinine Ratio 33.2 (12.0-20.0); CO2, Blood 31 mmol/L (21-32); Calcium, Blood 7.5 mg/dL (8.5-10.1); Chloride, Blood 118 mmol/L (98-108); Glomerular Filtration Rate 22 (60-); Glucose, Blood 129 mg/dL (70-99); Magnesium, Blood 1.6 mg/dL (1.6-2.4); Potassium, Blood 3.8 mmol/L (3.5-5.5); Sodium, Blood 153 mmol/L (136-145)
--- NOTE | 2022-04-21 05:03 | NUR ---
PT SUMMARY: PT SLEPT MOST OF THE NIGHT, NO ACUTE CHANGE. PT ABLE TO CONVERSE KNOWS THAT HE HAS DOM COMING UP FOR HIS HEART THIS THURSDAY, CAN ONLY STATE FIRST NAME, DOESNT KNOW HIS , PLACE, TIME AND YEAR. VITALS HRR SR/SB 40-60'S, BP SYSTOLIC 110'S, SATS ABOVE 95% ON 2L OF O2, AFEBRILE. PT HAD EPISODES OF NAUSEA/DRY HEAVING NO EMESIS PT REFUSED MEDS, STATED IT GOES AWAY WHEN LAYING DOWN. ALSO HAS PRODUCTIVE COUGH SUCTION SET UP AT BEDSIDE FOR CONVENIENT USE PT INSTRUCTED HOW TO USE SUCTION, ORAL CARE PROVIDED WELL. NO OTHER PAIN/DISCOMFORT REPORTED, PT REPOSITIONED IN BED FOR COMFORT, CATH CARE PROVIDED WELL PT HAS SOME DRIED BLOOD MUCUS ON THE TIP OF THE PENIS, POWDERED APPLIED ON THE REDDENED AREA ON THE GROIN/PANUS. NY DRAINING PATENT VIA GRAVITY, NO OTHER ISSUES REPORTED, WILL REPORT TO ONCOMING SHIFT
--- NOTE | 2022-04-21 09:40 | NUR ---
OT IN TO SEE PT.
--- NOTE | 2022-04-21 13:41 | NUR ---
NOTIFIED DR TRIMBLE PT'S 1300 SODIUM RESULT IS 148 NO NEW ORDERS AT THIS TIME.
--- NOTE | 2022-04-21 13:59 | NUR ---
PT WORKED PT ELIGIO FROM PT. NOW RESTING IN BED.
--- NOTE | 2022-04-21 16:41 | NUR ---
REPORT GIVEN TO [facility] FLOOR RM 340 RN. PT TRANSFERRED TO ROOM 340 W/POSSESSIONS VIA .
--- NOTE | 2022-04-21 18:03 | NUR ---
LATE ENTRY/RECEIVED FROM PCU. 1630: RECEIVED REPORT FROM JULISA SLIVER HANDLER. 1645: RECEIVED PT FROM PCU, PLACED IN BED, MADE COMFORTABLE AND ORIENTED TO ROOM AND UNIT ROUTINE. PT A&O X3. PLEASANT AND COOPERATIVE. 1745: PT HAD LARGE LOOSE INCONTINENT BM.
[2022-04-22 05:18] LABS: BASOPHILS ABSOLUTE AUTO 0.02 K/mm3 (0.00-0.23); BASOPHILS PERCENT AUTO 0 % (0-2); EOSINOPHILS ABSOLUTE AUTO 0.45 K/mm3 (0.00-0.68); EOSINOPHILS PERCENT AUTO 9 % (0-6); IMMATURE GRAN ABSOLUTE AUTO 0.02 K/mm3 (0.00-0.10); IMMATURE GRAN PERCENT AUTO 0 % (0-1); LYMPHOCYTES ABSOLUTE AUTO 1.05 K/mm3 (0.84-5.20); LYMPHOCYTES PERCENT AUTO 20 % (21-46); MONOCYTES ABSOLUTE AUTO 0.85 K/mm3 (0.16-1.47); MONOCYTES PERCENT AUTO 16 % (4-13); Mean Corpuscular HGB 31.7 pg (26.0-34.0); Mean Corpuscular HGB Conc 33.3 g/dL (31.5-36.5); Mean Corpuscular Volume 95 fL (80-100); NEUTROPHILS ABSOLUTE AUTO 2.79 K/mm3 (1.96-9.15); NEUTROPHILS PERCENT AUTO 54 % (41-73); Platelet Count 79 K/mm3 (150-400); RDW Coefficient Variation 13.2 % (11.7-14.2); Red Blood Cell Count 3.78 M/mm3 (4.30-5.90); White Blood Cell Count 5.18 K/mm3 (4.00-11.30)
[2022-04-22 05:30] LABS: Magnesium, Blood 1.6 mg/dL (1.6-2.4)
[2022-04-22 05:31] LABS: Albumin, Blood 2.5 g/dL (3.4-5.0); Anion Gap 4 mmol/L (6-16); Blood Urea Nitrogen 48 mg/dL (8-24); Bun/Creatinine Ratio 29.8 (12.0-20.0); CO2, Blood 31 mmol/L (21-32); Chloride, Blood 112 mmol/L (98-108); Creatinine, Blood 1.61 mg/dL (0.60-1.20); Glomerular Filtration Rate 43 (60-); Glucose, Blood 115 mg/dL (70-99); Phosphorus, Blood 2.3 mg/dL (2.5-4.9); Potassium, Blood 3.6 mmol/L (3.5-5.5); Sodium, Blood 147 mmol/L (136-145)
--- NOTE | 2022-04-22 07:31 | NUR ---
SHIFT SUMMARY: PATIENT HAS HAD NO BM'S THIS SHIFT, NY IS PATENT FOR AND VERN URINE. BRADICARDIA IS PERSISTANT ON TELI, IN THE MID 50'S THROUGHT THE NIGHT. PATIENT IS ASYMPTOMATIC WHILE IN BED. NO ACUTE CHANGES THIS SHIFT.
--- NOTE | 2022-04-22 16:16 | NUR ---
SHIFT SUMMARY PATIENT IS ALERT AND ORIENTED. PATIENT HAS NOT HAD ANY ACUTE EVENTS THIS SHIFT. VITAL SIGNS REVIEWED. PATIENT IS A ONE PERSON ASSIST TO BSC. PATIENT HAS NOT COMPLAINED OF PAIN, SOB, NAUSEA OR VOMITTING THIS SHIFT. PATIENT HAS NY DRAINING VERN URINE TO GRAVITY. BED IN LOCKED AND LOWEST POSITION. CALL LIGHT IN PLACE. WILL MONITOR UNTIL SHIFT CHANGE.
[2022-04-23 05:48] LABS: BASOPHILS ABSOLUTE AUTO 0.04 K/mm3 (0.00-0.23); BASOPHILS PERCENT AUTO 1 % (0-2); EOSINOPHILS ABSOLUTE AUTO 0.36 K/mm3 (0.00-0.68); EOSINOPHILS PERCENT AUTO 6 % (0-6); Hematocrit 35.6 % (37.0-53.0); Hemoglobin 11.9 g/dL (13.5-17.5); IMMATURE GRAN ABSOLUTE AUTO 0.03 K/mm3 (0.00-0.10); IMMATURE GRAN PERCENT AUTO 1 % (0-1); LYMPHOCYTES ABSOLUTE AUTO 0.98 K/mm3 (0.84-5.20); LYMPHOCYTES PERCENT AUTO 17 % (21-46); MONOCYTES ABSOLUTE AUTO 0.94 K/mm3 (0.16-1.47); MONOCYTES PERCENT AUTO 16 % (4-13); Mean Corpuscular HGB 31.7 pg (26.0-34.0); Mean Corpuscular HGB Conc 33.4 g/dL (31.5-36.5); Mean Corpuscular Volume 95 fL (80-100); Mean Platelet Volume 11.2 fL (9.1-12.4); NEUTROPHILS ABSOLUTE AUTO 3.58 K/mm3 (1.96-9.15); NEUTROPHILS PERCENT AUTO 60 % (41-73); Platelet Count 85 K/mm3 (150-400); RDW Coefficient Variation 13.1 % (11.7-14.2); RDW Standard Deviation 45.7 fL (35.1-46.3); Red Blood Cell Count 3.75 M/mm3 (4.30-5.90); White Blood Cell Count 5.93 K/mm3 (4.00-11.30)
[2022-04-23 06:05] LABS: Magnesium, Blood 1.3 mg/dL (1.6-2.4)
[2022-04-23 06:06] LABS: Albumin, Blood 2.6 g/dL (3.4-5.0); Anion Gap 4 mmol/L (6-16); Blood Urea Nitrogen 31 mg/dL (8-24); Bun/Creatinine Ratio 22.6 (12.0-20.0); CO2, Blood 30 mmol/L (21-32); Calcium, Blood 7.3 mg/dL (8.5-10.1); Chloride, Blood 111 mmol/L (98-108); Creatinine, Blood 1.37 mg/dL (0.60-1.20); Glomerular Filtration Rate 52 (60-); Glucose, Blood 97 mg/dL (70-99); Phosphorus, Blood 1.8 mg/dL (2.5-4.9); Potassium, Blood 3.8 mmol/L (3.5-5.5); Sodium, Blood 145 mmol/L (136-145)
--- NOTE | 2022-04-23 06:17 | NUR ---
SHIFT SUMMARY: PATIENT REPORTS FEELING STRONGER THIS SHIFT. VSS, NO BM THIS SHIFT. NY IS DRAINING AN VERN URINE. DEXTROSE IVF ORDER WAS CLARIFIED WITH DR TRIMBLE THIS AM. ORDERS WERE OBTAINED TO GIVEN PATIENT 2 GR OF MAG IVPB, GIVE K PHOS 20 MM IV THEN RESTART DEXTROSE @ 75ML/HR.
--- NOTE | 2022-04-23 16:06 | NUR ---
SHIFT SUMMARY PATIENT IS ALERT AND ORIENTED. PATIENT HAS HAD NO ACUTE EVENTS THIS SHIFT. VITAL SIGNS REVIEWED. PATIENT HAS WORKED WITH PT/OT WITH GOOD SUCCESS. PATIENT HAS BEEN RESTING IN CHAIR MOST OF SHIFT. PATIENT IS A ONE PERSON ASSIST TO BATHROOM. PATIENT HAS NOT COMPLAINED OF PAIN, NAUSEA, SOB OR VOMITTING THIS SHIFT. BED IN LOCKED AND LOWEST POSITION. CALL LIGHT IN PLACE. WILL MONITOR UNTIL SHIFT CHANGE.
--- NOTE | 2022-04-24 05:56 | NUR ---
SHIFT SUMMARY AOX3. VSS. NO ACUTE CHANGES OVERNIGHT. PT SLEPT GOOD. PT DENIES CHEST PAIN AND SOB. LUNGS DIM AND COARSE. PT HAS WET COUGH. PT REMAINED ON 2L NC, SATS OVER 90%. TOLERATING PO INTAKE DENIES NAUSEA AND VOMITING. MEDS WHOLE. TELE: NSR AT 50'S. NY IN PLACED, PATENT AND OFF FLOOR. PLAN: WAITING FOR PLACEMENT TO SNF. CALL LIGHT WITHIN REACH. WILL PROVIDE REPORT TO ONCOMING NURSE.
[2022-04-24 06:03] LABS: BASOPHILS ABSOLUTE AUTO 0.03 K/mm3 (0.00-0.23); BASOPHILS PERCENT AUTO 1 % (0-2); EOSINOPHILS ABSOLUTE AUTO 0.36 K/mm3 (0.00-0.68); EOSINOPHILS PERCENT AUTO 6 % (0-6); Hematocrit 34.9 % (37.0-53.0); Hemoglobin 11.9 g/dL (13.5-17.5); IMMATURE GRAN ABSOLUTE AUTO 0.02 K/mm3 (0.00-0.10); IMMATURE GRAN PERCENT AUTO 0 % (0-1); LYMPHOCYTES PERCENT AUTO 18 % (21-46); MONOCYTES ABSOLUTE AUTO 0.76 K/mm3 (0.16-1.47); MONOCYTES PERCENT AUTO 14 % (4-13); Mean Corpuscular HGB 31.8 pg (26.0-34.0); Mean Corpuscular HGB Conc 34.1 g/dL (31.5-36.5); Mean Corpuscular Volume 93 fL (80-100); Mean Platelet Volume 10.8 fL (9.1-12.4); NEUTROPHILS ABSOLUTE AUTO 3.44 K/mm3 (1.96-9.15); NEUTROPHILS PERCENT AUTO 61 % (41-73); Platelet Count 79 K/mm3 (150-400); RDW Coefficient Variation 12.9 % (11.7-14.2); RDW Standard Deviation 44.2 fL (35.1-46.3); Red Blood Cell Count 3.74 M/mm3 (4.30-5.90); White Blood Cell Count 5.61 K/mm3 (4.00-11.30)
[2022-04-24 06:21] LABS: Albumin, Blood 2.6 g/dL (3.4-5.0); Anion Gap 6 mmol/L (6-16); Blood Urea Nitrogen 25 mg/dL (8-24); CO2, Blood 28 mmol/L (21-32); Calcium, Blood 7.2 mg/dL (8.5-10.1); Chloride, Blood 110 mmol/L (98-108); Creatinine, Blood 1.19 mg/dL (0.60-1.20); Glomerular Filtration Rate 62 (60-); Glucose, Blood 93 mg/dL (70-99); Phosphorus, Blood 1.7 mg/dL (2.5-4.9); Potassium, Blood 3.8 mmol/L (3.5-5.5); Sodium, Blood 144 mmol/L (136-145)
--- NOTE | 2022-04-24 17:38 | NUR ---
SHIFT SUMMARY PATIENT IS ALERT AND ORIENTED. PATIENT HAS BEEN PLEASENT AND COOPERATIVE WITH CARE. PATIENT IS A ONE PERSON ASSIST. PATIENT HAS HAD ONE LARGE BM THIS SHIFT. PATIENT IS PLANNING ON DISCHARGING TO SNF TOMORROW. PATIENT HAS NOT HAD ANY ACUTE EVENTS THIS SHIFT. VITAL SIGNS REVIEWED. PATIENT HAS NOT COMPLAINED OF PAIN, NAUSEA, VOMITTING OR SOB THIS SHIFT. PATIENT IS ON 2L NC SATTING ABOVE 95. PATIENT WORKED WITH PT/OT WELL TODAY. BED IN LOCKED AND LOWEST POSITION. CALL LIGHT IN PLACE. WILL MONITOR UNTIL SHIFT CHANGE.
[2022-04-25 04:48] LABS: BASOPHILS ABSOLUTE AUTO 0.03 K/mm3 (0.00-0.23); BASOPHILS PERCENT AUTO 1 % (0-2); EOSINOPHILS ABSOLUTE AUTO 0.37 K/mm3 (0.00-0.68); EOSINOPHILS PERCENT AUTO 6 % (0-6); Hematocrit 33.3 % (37.0-53.0); Hemoglobin 11.5 g/dL (13.5-17.5); IMMATURE GRAN ABSOLUTE AUTO 0.03 K/mm3 (0.00-0.10); IMMATURE GRAN PERCENT AUTO 1 % (0-1); LYMPHOCYTES ABSOLUTE AUTO 1.02 K/mm3 (0.84-5.20); LYMPHOCYTES PERCENT AUTO 17 % (21-46); MONOCYTES ABSOLUTE AUTO 0.75 K/mm3 (0.16-1.47); MONOCYTES PERCENT AUTO 12 % (4-13); Mean Corpuscular HGB 31.9 pg (26.0-34.0); Mean Corpuscular HGB Conc 34.5 g/dL (31.5-36.5); Mean Corpuscular Volume 92 fL (80-100); Mean Platelet Volume 10.9 fL (9.1-12.4); NEUTROPHILS ABSOLUTE AUTO 3.86 K/mm3 (1.96-9.15); NEUTROPHILS PERCENT AUTO 64 % (41-73); Platelet Count 86 K/mm3 (150-400); RDW Coefficient Variation 12.8 % (11.7-14.2); RDW Standard Deviation 43.1 fL (35.1-46.3); Red Blood Cell Count 3.61 M/mm3 (4.30-5.90); White Blood Cell Count 6.06 K/mm3 (4.00-11.30)
--- NOTE | 2022-04-25 04:56 | NUR ---
SHIFT SUMMARY NO ACUTE CHANGES OVERNIGHT. TELE REMAIN NSR T/O SHIFT. VSS. VOIDING IN URINAL. PT HAD 1 BM. UP IN THE BATHROOM WITH 1 PERSON ASSIST WITH FWW AND GB. AOX3. TOLERATING PO INTAKE DENIES NAUSEA AND VOMITING. DENIES DIZZINESS, NUMBNESS AND TINGLING SENSATION. PT INTERMITTENTLY COUGHING WITH COARSE LUNGS. ENC DEEP BREATHING AND COUGH EXERCISE AND USE OF I/S. SALINE LOCK WITH POWERGLIDE ON REJI (DRAWS BLOOD) AND PERIPHERAL IV ON R AC. PT SLEPT GOOD OVERNIGHT AND STS HE IS FEELING BETTER. CALL LIGHT WITHIN REACH. WILL PROVIDE REPORT TO ONCOMING NURSE.
[2022-04-25 05:01] LABS: Albumin, Blood 2.7 g/dL (3.4-5.0); Anion Gap 5 mmol/L (6-16); Blood Urea Nitrogen 32 mg/dL (8-24); CO2, Blood 28 mmol/L (21-32); Calcium, Blood 7.2 mg/dL (8.5-10.1); Chloride, Blood 107 mmol/L (98-108); Creatinine, Blood 1.28 mg/dL (0.60-1.20); Glomerular Filtration Rate 57 (60-); Glucose, Blood 96 mg/dL (70-99); Phosphorus, Blood 2.1 mg/dL (2.5-4.9); Potassium, Blood 3.7 mmol/L (3.5-5.5); Sodium, Blood 140 mmol/L (136-145)
[2022-04-25 09:46] LABS: Influenza A, PCR NEGATIVE (NEGATIVE); Influenza B, PCR NEGATIVE (NEGATIVE); Resp Syncytial Virus, PCR NEGATIVE (NEGATIVE); SARS-Cov-2 (COVID-19) PCR, MMC NEGATIVE (NEGATIVE)
--- NOTE | 2022-04-25 18:00 | NUR ---
SHIFT SUMMARY PATIENT A&OX3. 1PA WITH FWW AND GB. ON 2L NC. SLIGHT EDEMA NOTED IN BLE. PATIENT STATES HE HAD DIARRHEA A FEW DAYS AGO BUT IT IS IMPROVING. PATIENT STATES HE IS TO HAVE HEART SURGERY, THAT IT WAS SUPPOSED TO BE TODAY BUT HE IS IN THE HOSPITAL. ACCORDING TO PATIENT THIS IS THE 4TH TIME HE HAS ATTEMPTED TO GET THIS SURGERY DONE. ORIGINALLY PLANNED TO D/C PATIENT TO SNF BUT INSURANCE DID NOT QUALIFY. PLAN IS TO DISCHARGE HOME WITH HOME HEALTH TOMORROW. SPOKE TO PATIENTS SON OF PLAN AND HE HAS CONCERNS REGARDING PATIENTS LIVING SITUATION AND STATING HE HAS NOT RETURNED TO HIS BASELINE AND IS STILL CONFUSED AT TIMES. REFERRED SON TO CASE MANAGEMENT. WILL CONTINUE TO MONITOR.
[2022-04-26 06:43] LABS: Hematocrit 32.5 % (37.0-53.0); Hemoglobin 11.3 g/dL (13.5-17.5)
[2022-04-26 06:58] LABS: Albumin, Blood 2.6 g/dL (3.4-5.0); Anion Gap 4 mmol/L (6-16); Blood Urea Nitrogen 31 mg/dL (8-24); Bun/Creatinine Ratio 26.1 (12.0-20.0); CO2, Blood 30 mmol/L (21-32); Calcium, Blood 7.9 mg/dL (8.5-10.1); Chloride, Blood 108 mmol/L (98-108); Creatinine, Blood 1.19 mg/dL (0.60-1.20); Glomerular Filtration Rate 62 (60-); Glucose, Blood 99 mg/dL (70-99); Potassium, Blood 3.6 mmol/L (3.5-5.5); Sodium, Blood 142 mmol/L (136-145)
--- NOTE | 2022-04-26 07:12 | NUR ---
SHIFT SUMMARY PATIENT ALERT AND ORIENTED x3-4. ABLE TO MAKE NEEDS KNOWN TO STAFF AND ANSWERS QUESTIONS APPROPRIATELY. VSS, PATIENT ON 2L NC WITH O2 SAT >90%. DENIES CHEST PAIN OR SOB DURING THE NIGHT. PATIENT STANDS AT BEDSIDE AND USES URINAL WITH MINIMUM ASSIST, ADEQUATE URINE OUTPUT THIS SHIFT. NO OTHER SIGNIFICANT CHANGES THIS SHIFT, WILL REPORT TO DAY SHIFT RN.
[2022-04-26] MEDS ORDERED: LISI5 PO (15:16)
[2022-04-26] MEDS ORDERED: METO25ER PO (15:17)
[2022-04-26] MEDS ORDERED: K-Phos Origina500 MG PO (15:18)
--- NOTE | 2022-04-26 17:33 | NUR ---
DISCHARGE SUMMARY PATIENT DISCHARGED HOME WITH HOME HEALTH. HOME 02 EVAL DONE AND PATIENT DOES NOT REQUIRE O2. DISCHARGE PAPERWORK REVIEWED WITH PATIENT AND ALL QUESITONS ANSWERED. TWO PRESCRIPTIONS FAXED TO [facility] FOR PATIENT TO [employer] TODAY. THE THIRD MEDICATION THAT PATIENT ALREADY HAS AT HOME WAS FAXED TO [facility]. MEDICATION CHANGES WERE EXPLAINED TO PATIENT AND PATIENTS FRIEND VIA PHONE. IVS D/C'D. PATIENT AND ALL BELONGINGS INCLUDING HOME PRESCRIPTIONS AND WALLET TAKEN WITH PATIENT VIA WHEELCHAIR TO FRIENDS CAR AND TAKEN.
== END 2022-04-26 17:19 | disposition home health service (06) | DRG 682 ==
LOC: ER 15:27 → ICUE 19:56 → PCU 04-20 17:44 → MEDS 04-21 16:37
PROVIDERS: Emergency Medicine; Family Medicine; Internal Medicine Endocrinology, Diabetes & Metabolism; Internal Medicine Nephrology; Student in an Organized Health Care Education/Training Program; ADMIT Hospitalist
DX: N17.0 Acute kidney failure with tubular necrosis (principal); G93.41 Metabolic encephalopathy; R65.11 Systemic inflammatory response syndrome (SIRS) of non-infectious origin with acute organ dysfunction; E87.0 Hyperosmolality and hypernatremia; E87.2 Acidosis; I50.22 Chronic systolic (congestive) heart failure; I13.0 Hypertensive heart and chronic kidney disease with heart failure and stage 1 through stage 4 chronic kidney disease, or unspecified chronic kidney disease; L03.115 Cellulitis of right lower limb; L03.116 Cellulitis of left lower limb; Z20.822 Contact with and (suspected) exposure to COVID-19; I48.91 Unspecified atrial fibrillation; N18.9 Chronic kidney disease, unspecified; K52.9 Noninfective gastroenteritis and colitis, unspecified; I25.10 Atherosclerotic heart disease of native coronary artery without angina pectoris; R74.02 Elevation of levels of lactic acid dehydrogenase [LDH]; E87.5 Hyperkalemia; I95.9 Hypotension, unspecified; E83.39 Other disorders of phosphorus metabolism; D69.6 Thrombocytopenia, unspecified; B35.4 Tinea corporis; E86.0 Dehydration; E83.42 Hypomagnesemia; E86.9 Volume depletion, unspecified; D63.1 Anemia in chronic kidney disease; Z96.0 Presence of urogenital implants; Z79.02 Long term (current) use of antithrombotics/antiplatelets; Z79.811 Long term (current) use of aromatase inhibitors; Z79.01 Long term (current) use of anticoagulants; I25.2 Old myocardial infarction; Z98.890 Other specified postprocedural states; Z98.42 Cataract extraction status, left eye; Z98.41 Cataract extraction status, right eye; Z95.1 Presence of aortocoronary bypass graft; Z87.891 Personal history of nicotine dependence; Z79.2 Long term (current) use of antibiotics; Z79.82 Long term (current) use of aspirin; Z79.899 Other long term (current) drug therapy
CPT/HCPCS: 0241U; 36415; 51702; 71045; 74176; 76770; 80053; 80069; 80202; 82550; 82553; 82803; 83605; 83735; 83880; 84100; 84145; 84295; 84484; 85014; 85018; 85025; 85610; 85730; 87040; 87507; 93005; 93010; 93308; 93321; 94644; 94664; 94760; 94761; 94762; 96365; 96367; 96368; 96375; 97110; 97116; 97162; 97166; 97530; 97535; 99291-25; A9270; C1751; J0692; J1450; J1815; J2405; J2765; J3370; J3475; J7060; J7070; J7120; J7799

== ENCOUNTER → 2023-07-09 | Outpatient (CLI) | payer OTHER ==
[~2023-07-09] MED LIST changes: +K-Phos Origina500 MG PO; +LISI5 PO; +METO25ER PO
[2023-07-15 12:12] LABS: M-SPIKE, % Not Observed % (Not Observed); PROTEIN,TOTAL,URINE 13.5 mg/dL (Not Estab.)
== END ==
LOC: EDSTATUS 07:22 → LAB 11:00 → LAB SHORT 11:00
PROVIDERS: Internal Medicine Nephrology
DX: N18.30 Chronic kidney disease, stage 3 unspecified (principal); N25.81 Secondary hyperparathyroidism of renal origin; E55.9 Vitamin D deficiency, unspecified; E78.00 Pure hypercholesterolemia, unspecified; N40.1 Benign prostatic hyperplasia with lower urinary tract symptoms; R76.9 Abnormal immunological finding in serum, unspecified; R94.5 Abnormal results of liver function studies; R94.6 Abnormal results of thyroid function studies
CPT/HCPCS: 84156; 84166; 86335